=== PATIENT | female | born 1980 | race Caucasian/White ===

== ENCOUNTER → 2024-06-20 08:12 | Outpatient (REF) | payer BC, SELFPAY | LOC: WDC 08:12 | PROVIDERS: ATTENDING PHYSICIAN Physician Assistant | DX: Z12.31 Encounter for screening mammogram for malignant neoplasm of breast (principal) | CPT/HCPCS: 77063; 77067 ==

== ENCOUNTER 2024-09-01 11:08 | Emergency (ER) | payer BC, SELFPAY ==
[2024-09-01 11:23] VITALS: BP 160/99
[2024-09-01 12:00] VITALS: BP 154/85
--- NOTE | 2024-09-01 12:05 | ED.GENMED ---
History of Present Illness
General
Chief Complaint: Musculo-Skeletal Complaint
Source: patient
Time Seen by Provider: 09/01/24 11:58
History of Present Illness
History of Present Illness:
44yoF with no significant past medical history presenting for evaluation of right hip pain. She denies any specific injuries. She states she started to hobble on her R hip 2 days ago while [id number] with her children. She is now unable to
bear weight without any significant pain. Pain is worse in the lateral hip and is non-radiating. She has been taking ibuprofen with some improvement. Of note, patient started to run about 1.5 weeks and was sedentary prior to this. She denies any
fevers, back pain, abdominal pain, paresthesias.
Past History
Past History
ED Past Medical History: Other (Gallstones)
Social History
Tobacco: Non-smoker
Personal:
Living: with family
Phy Exam
General Physical Exam
General Presentation: well appearing and no apparent distress
General age: appears stated age
General Skin: warm and dry
General Habitus: normal
General Mental: alert
General Hydration: appears well hydrated
ENT Exam
ENT Exam: normocephalic
Pulmonary Exam
Pulmonary Exam: no respiratory distress
Gastrointestinal Exam
Gastrointestinal Exam: non tender, soft and non distended
[place] Coma Scale
Eye Opening: Spontaneous
Verbal Response: Oriented
Motor Response: Obeys Commands
GCS Total Score: 15
Musculoskeletal Exam
Musculoskeletal Exam: other (R hip: Normal to inspection without edema or skin changes. +Point tenderness to greater trochanter. ROM mildly decreased 2/2 pain. 2+ DP pulse and sensation intact. )
Skin Exam
Skin Exam: normal color and warm/dry
Psychiatric Exam
Psychiatric Exam: normal mood/affect
Course
Orders/Labs/Results
Orders:
Orders
09/01/24 11:48
Hip, Right 2-3 Views [CR Hip - RT w/wo Pel 2-3 Vw*] Urgent
Comment:
Reason For Exam: pain
Include a pelvis x-ray?: Yes
09/01/24 12:49
Crutches-Treatment ONCE
Vital Signs
Initial and Last Documented VS:
Initial Vital Signs
Temp Pulse Resp BP Pulse Ox
98.4 F 107 18 160/99 95
09/01/24 11:23 09/01/24 11:23 09/01/24 11:23 09/01/24 11:23 09/01/24 11:23
Last Documented Vital Signs
Temp Pulse Resp BP Pulse Ox
98.4 F 107 18 160/99 95
09/01/24 11:23 09/01/24 11:23 09/01/24 11:23 09/01/24 11:23 09/01/24 11:23
MDM/Problems Addressed
Differential Diagnosis Includes:
44yoF here with R hip pain x 2 days. Started while [id number] with her children. No reported trauma. Also started running 1.5 weeks ago. No deformity or skin changes on exam. There is point tenderness to the greater trochanter on exam. RLE is
neurovascularly intact. Differential diagnosis includes but is not limited to: bursitis, sprain, doubt fracture, no clinical evidence of DVT
X-rays of R hip obtained. Minimal degenerative changes noted without acute osseous abnormality. Suspect trochanteric bursitis based on clinical picture. Supportive care discussed including rest, ice, and PRN NSAIDs. Crutches given for comfort.
Advised f/u with orthopedics if symptoms persist.
*Critical Care Note
Total Time (30-74mins, 75-104mins- exclusive of procedures): Not Applicable
ED Attending Note
-
Portions of this chart may have been created with voice recognition software.� Occasional wrong word or��sound alike� substitutions may have occurred due to the inherent limitations of voice recognition software.
Discharge Plan
Departure
Patient Disposition: Home (Routine Discharge)
Date of Disposition: 09/01/24
Time of Disposition: 12:49
Patient with high blood pressure during this ER visit?: Yes
Discharge Problem:
Trochanteric bursitis of right hip
Instructions: Hip Bursitis (DC)
Prescriptions:
No Action
desogestrel-ethinyl estradiol [Apri] 1 EACH tablet
1 tab PO DAILY
multivitamin 1 EACH tablet
1 tab PO DAILY
oxycodone-acetaminophen 5 MG/325 MG tablet
1 tab PO Q4HPRN PRN (Reason: moderate to severe pain) Qty: 6 0RF
Referrals:
Rosa Palmer I., DO [Active] -
Mariposa Carbajal PA [Family Provider] -
Activity Restrictions/Additional Instructions:
Apply ice to affected area. Take ibuprofen 600mg every 6 hours as needed for pain. Use crutches for comfort.
Please follow-up with orthopedics if symptoms persist.
Interventions
Interventions:
*Risk Screen - Suicide Last Done: 09/01/24 11:23
*General Assessment Last Done: 09/01/24 11:23
*Neglect/Abuse Screening Last Done: 09/01/24 11:23
Discharge Date and Time
Print Language: GAMBIAN
== END 2024-09-01 13:20 | disposition home or self-care (01) ==
LOC: EMR 11:08
PROVIDERS: EMERGENCY PHYSICIAN Emergency Medicine; FAMILY PHYSICIAN Physician Assistant
DX: M25.551 Pain in right hip (principal); M70.61 Trochanteric bursitis, right hip; R26.2 Difficulty in walking, not elsewhere classified; R03.0 Elevated blood-pressure reading, without diagnosis of hypertension
CPT/HCPCS: 99283; 73502

== ENCOUNTER → 2025-01-17 10:37 | Outpatient (REF) | payer BC, SELFPAY | LOC: HWRCS 10:37 | PROVIDERS: ATTENDING PHYSICIAN Physician Assistant | DX: R01.1 Cardiac murmur, unspecified (principal) | CPT/HCPCS: 93306 ==

== ENCOUNTER → 2025-06-21 11:58 | Outpatient (REF) | payer BC, SELFPAY | LOC: WDC 11:58 | PROVIDERS: ATTENDING PHYSICIAN Physician Assistant | DX: Z12.31 Encounter for screening mammogram for malignant neoplasm of breast (principal) | CPT/HCPCS: 77063; 77067 ==